=== PATIENT | female | born 1975 ===

== ENCOUNTER → 2017-08-02 | Outpatient (REF) ==
[2017-08-02 19:38] LABS: THYROID STIMULATING HORMONE 3.01 uIU/mL (0.465-4.680)
== END ==
LOC: ZLAB.WCH 18:58
PROVIDERS: Nurse Practitioner Family
DX: Z01.89 Encounter for other specified special examinations (principal)

== ENCOUNTER → 2018-08-01 | Outpatient (CLI) | payer OTHER | LOC: ZCOL.LAB 13:34 | DX: J02.9 Acute pharyngitis, unspecified (principal) ==

== ENCOUNTER 2018-09-21 10:47 | Outpatient (RCR) | payer OTHER | END 2018-12-20 | LOC: MKS.ESL.PT | DX: M54.9 Dorsalgia, unspecified (principal); M79.606 Pain in leg, unspecified ==